=== PATIENT | female | born 2000 | race Caucasian/White ===

== ENCOUNTER 2022-06-15 14:56 | Emergency (ER) | payer OTHER ==
[~2022-06-15] VITALS: Ht 157.5 cm; Wt 49.0 kg
[2022-06-15 15:23] VITALS: BP 117/76
[2022-06-15] MEDS ORDERED: ONDA-188 PO (16:55)
[2022-06-15] MEDS ORDERED: SUD30 PO (16:55)
[2022-06-15] MEDS ORDERED: IBUP-2213 PO (16:55)
--- NOTE | 2022-06-15 17:00 | NUR ---
Patient discharged with v/s stable. Written and verbal after care instructions given and explained. Patient alert, oriented and verbalized understanding of instructions. Ambulatory with steady gait. All questions addressed prior to discharge. ID band removed. Patient advised to follow up with PMD. Rx of VALENTINA GERMAIN given. Patient educated on indication of medication including possible reaction and side effects. Opportunity to ask questions provided and answered.
[2022-06-15 17:10] VITALS: BP 111/72
== END 2022-06-15 17:20 | disposition home or self-care (01) ==
LOC: MED 14:56
DX: B34.9 Viral infection, unspecified (principal); Z79.899 Other long term (current) drug therapy; Z79.1 Long term (current) use of non-steroidal anti-inflammatories (NSAID)
CPT/HCPCS: 81002; 81025; 99283